=== PATIENT | female | born 1960 | race African-American/Black ===

== ENCOUNTER 2024-09-13 06:22 | Emergency (ER) | payer OTHER ==
[~2024-09-13] VITALS: Ht 170.2 cm; Wt 58.0 kg
--- NOTE | 2024-09-13 06:52 | ED.PDOC ---
History of Present Illness HPI Comments 64-year-old female with PMHx HTN brought in by EMS presents with a chief complaint of near-syncope, dizziness, and weakness x onset this morning. Patient reports that she got up to use the restroom and then got dizzy, almost like vertigo, and got really weak. Patient did not fall and had no head trauma. Miracle ent describes herself as feeling "really weak". EMS reports that patient was hypertensive upon arrival at 167/100. EKG shows NSR with a rate of 75. No other symptoms or modifying factors present at this time. Time Seen by MD: 06:45 Reviewed Notes: Medications, Allergies Allergies: Coded Allergies: NO KNOWN ALLERGIES (Unverified , 09/13/24) Information Source: Patient, Emergency Med Personnel Mode of Arrival: EMS Severity: Moderate Timing: Minutes Duration: Since onset Prehospital treatment: Accucheck (160) Past Medical History PAST MEDICAL HISTORY: HTN Surgical History: Denies all surgeries NNPS History: Denies all NNPS Hx Family History Family History: Reviewed,noncontributory to illness Social History Smoker: Non-Smoker Alcohol: Denies ETOH Use Drugs: Denies Drug Use Lives In: Home Constitutional: reports: weakness; denies: chills, diaphoresis, fatigue, fever, malaise, sweats, others EENTM: denies: blurred vision, double vision, ear bleeding, ear discharge, ear drainage, ear pain, ear ringing, eye pain, eye redness, hearing loss, mouth pain, mouth swelling, nasal discharge, nose bleeding, nose congestion, nose pain, photophobia, tearing, throat pain, throat swelling, voice changes, others Respiratory: denies: cough, hemoptysis, orthopnea, SOB at rest, shortness of b reath, SOB with excertion, stridor, wheezing, others Cardiovascular: denies: chest pain, dizzy spells, diaphoresis, Dyspnea on exertion, edema, irregular heart beat, left arm pain, lightheadedness, palpitations, PND, syncope, others Gastrointestinal: denies: abdomen distended, abdominal pain, blood streaked bowels, constipated, diarrhea, dysphagia, difficulty swallowing, hematemesis, melena, nausea, poor appetite, poor fluid intake, rectal bleeding, rectal pain, vomiting, others Genitourinary: denies: abnormal vagina bleeding, burning, dyspareunia, dysuria, flank pain, frequency, hematuria, incontinence, pain, , vagina discharge, urgency, others Neurological: reports: dizziness (NEAR-SYNCOPE); denies: fainting, headache, left sided numbness, left sided weakness, numbness, paresthesia, pre-existing deficit, right sided numbness, right sided weakness, seizure, speech problems, tingling, tremors, weakness, others Musculoskeletal: denies: back pain, gout, joint pain, joint swelling, muscle pain, muscle stiffness, neck pain, others Integumetry: denies: bruises, change in color, change in hair/nails, dryness, laceration, lesions, lumps, rash, wounds, others Allergic/Immunocompromised: denies: Difficulty Healing, Frequent Infections, Hives, Itching, others Hematologic/Lymphatic: denies: anemia, blood clots, easy bleeding, easy bruising, swollen glands, others Endocrine: denies: excessive hunger, excessive sweating, excessive thirst, excessive urination, flushing, intolerance to cold, intolerance to heat, unexplained weight gain, unexplained weight loss, others Psychiatric: denies: anxiety, bipolar disorder, depression, hopeless, panic disorder, schizophrenia, sleepless, suicidal, others All Other Systems: Reviewed and Negative Physical Exam General Appearance: No Apparent Distress, Normal HEENT: Normal ENT Inspection, Pharynx Normal, TMs Normal Neck: Full Range of Motion, Non-Tender, Normal, Normal Inspection Respiratory: Chest Non-Tender, Lungs Clear, No Accessory Muscle Use, No Respiratory Distress, Normal Breath Sounds Cardiovascular: No Edema, No JVD, No Murmur, No Gallop, Normal Peripheral Pulses, Regular Rate/Rhythm Breast Exam: Deferred Gastrointestinal: No Organomegaly, Non Tender, No Pulsatile Mass, Normal Bowel Sounds, Soft Genitalia: Deferred Pelvic: Deferred Rectal: Deferred Extremities: No calf tenderness, Normal capillary refill, Normal inspection, Normal range of motion, Non-tender, No pedal edema Musculoskeletal : Apperance: Normal Neurologic: Alert, 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 Was a procedure done?: No EKG EKG : Pulse Rate (adult): 75 [place]: Normal Cardiac Rhythm: NSR Block: None Hypertrophy: None ST: Normal Differential Dx Considerations may include: Hypertensive urgency, electrolyte abnormalities, CVA, posterior circulation stroke X-Ray, Labs, Meds, VS Vital Signs Date Time Temp Pulse Resp B/P (MAP) Pulse Ox O2 Delivery O2 Flow Rate FiO2 09/13/24 11:18 97.5 09/13/24 09:29 73 16 99 Room Air* 0 21 09/13/24 09:28 97.5 73 16 168/109 (128) 99 97.5 09/13/24 07:27 74 09/13/24 06:59 97.9 74 14 170/109 (129) 100 97.9 09/13/24 06:59 Room Air* 0 21 09/13/24 06:52 75 09/13/24 06:40 98.8 70 20 167/116 (133) 95 09/13/24 06:26 75 Lab Test 09/13/24 11:03 09/13/24 09:44 09/13/24 07:33 09/13/24 06:40 Range/Units Urine Color Pending Urine Clarity Pending Urine pH Pending Urine Specific [place] Pending Urine Protein Pending Urine Ketones Pending Urine Blood Pending Urine Nitrite Pending Urine Bilirubin Pending Urine Urobilinogen Pending Urine Leukocyte Esterase Pending Urine RBC Pending Urine WBC Pending Urine Squamous Epithelial Cells Pending Urine Bacteria Pending Urine Glucose Pending POC Glucose 141 H 70-106 mg/dl Troponin I High Sensitivity 5 5 5 </=34 ng/L White Blood Count 3.2 L 4.4-10.8 10^3/uL Red Blood Count 4.89 4.0-5.20 10^6/uL Hemoglobin 13.5 12.2-16.2 g/dL Hematocrit 42.1 36.0-46.0 % Mean Corpuscular Volume 86.1 80.0-100.0 fL Mean Corpuscular Hemoglobin 27.6 L 28.0-32.0 pg Mean Corpuscular Hemoglobin Concent 32.1 32.0-36.0 g/dL Red Cell Distribution Width 15.0 H 11.8-14.3 % Platelet Count 220 140-450 10^3/uL Mean Platelet Volume 9.8 6.9-10.8 fL Neutrophils (%) (Auto) 49.9 37.0-80.0 % Lymphocytes (%) (Auto) 38.2 10.0-50.0 % Monocytes (%) (Auto) 7.9 0.0-12.0 % Eosinophils (%) (Auto) 2.9 0.0-7.0 % Basophils (%) (Auto) 1.1 0.0-2.0 % Neutrophils # (Auto) 1.6 1.6-8.6 10 ^3/uL Lymphocytes # (Auto) 1.2 0.4-5.4 10 ^3/uL Monocytes # (Auto) 0.3 0-1.3 10 ^3/uL Eosinophils # (Auto) 0.1 0-0.8 10 ^3/uL Basophils # (Auto) 0 0-0.2 10 ^3/uL Nucleated Red Blood Cells 0.3 % Sodium Level 142 136-145 mmol/L Potassium Level 3.3 L 3.5-5.1 mmol/L Chloride Level 106 98-107 mmol/L Carbon Dioxide Level 25 20-31 mmol/L Anion Gap 11 5-15 Blood Urea Nitrogen 13 9-23 mg/dL Creatinine 1.06 H 0.550-1.02 mg/dL Glomerular Filtration Rate Calc 59 >90 mL/min BUN/Creatinine Ratio 12.3 10.0-20.0 Serum Glucose 160 H 74-106 mg/dL Calcium Level 10.2 8.7-10.4 mg/dL Current Medications Medications (Trade) Dose Ordered Sig/Christiano Route Start Time Stop Time Status Last Admin Acetaminophen (Tylenol Tablet) 650 mg ONCE ONCE PO 09/13/24 11:15 09/13/24 11:16 DC 09/13/24 11:18 Time of 1ST Reevaluation: 07:15 Reevaluation 1ST: Unchanged Patient Education/Counseling: Diagnosis, Treatment, Prognosis Family Education/Counseling: No Family Present Departure 1 Departure Time of Disposition: 11:21 (Patient presented with hypertension and symptoms concerning for hypertensive emergency. Patient is receiving iv blood pressure medications requiring intensive monitoring. Data: 1. I ordered and reviewed the result of at least 3 labs including a CBC, BMP, and Urinalysis. 2. I independently interpreted the following tests: CT Brain: Which appears benign. EKG which is Normal Sinus RhythmRisk:This patient has a high risk of morbidity due to further diagnostic testing or treatment and may suffer from an acute c ardiac disorder. Workup reveals hypertensive emergency and patient should be admitted for further workup. and possible expert consultation. ) Impression: Primary Impression: Gait instability Additional Impressions: Near syncope Hypertensive emergency Disposition: 02 SHORT TERM HOSPITAL Admit to: Med Surg Condition: Serious Critical Care Note Critical Care Time?: Yes Critical care comment: Hypertensive emergency Authorized and Performed by: Meenu Young MD Total critical care time: Approximately 36 minutes Due to a high probability of clinically significant, life threatening deterioration, the patient required my highest level of preparedness to intervene emergently and I personally spent this critical care time directly and personally managing the patient. This critical care time included obtaining a history; examining the patient; pulse oximetry; ordering and review of studies; arranging urgent treatment with development of a management plan; evaluation of patient's response to treatment; frequent reassessment; and, discussions with other providers. This critical care time was performed to assess and manage the high probability of imminent, life-threatening deterioration that could result in multi-organ failure. It was exclusive of separately billable procedures and treating other patients and teaching time. Please see my other sections and the rest of the note for further information on patient assessment and treatment. Stability Stability form required: Yes Initial call: 11:21 Stable for transfer: To designated facility Comments Emmanuel Authorization [id number] I personally scribed for MEENU YOUNG MD ([email or web address]) on 09/13/24 at 06:52. Electronically submitted by Noel Vargas ([email or web address]). MEENU YOUNG MD Sep 13, 2024 06:52
--- NOTE | 2024-09-13 06:59 | ECG ---
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
[2024-09-13 07:22] LABS: Chloride 106 mmol/L (98-107); Potassium 3.3 mmol/L (3.5-5.1); Sodium 142 mmol/L (136-145)
[2024-09-13 07:23] LABS: Anion Gap 11 (5-15); Calcium 10.2 mg/dL (8.7-10.4); Carbon Dioxide 25 mmol/L (20-31)
[2024-09-13 07:28] LABS: BUN/Creatinine Ratio 12.3 (10.0-20.0); Blood Urea Nitrogen 13 mg/dL (9-23); Glucose 160 mg/dL (74-106)
[2024-09-13 07:32] LABS: Basophils # (auto) 0 10 ^3/uL (0-0.2); Basophils % (auto) 1.1 % (0.0-2.0); Eosinophils # (auto) 0.1 10 ^3/uL (0-0.8); Eosinophils % (auto) 2.9 % (0.0-7.0); Hematocrit 42.1 % (36.0-46.0); Hemoglobin 13.5 g/dL (12.2-16.2); Lymphocytes # (auto) 1.2 10 ^3/uL (0.4-5.4); Lymphocytes % (auto) 38.2 % (10.0-50.0); Mean Corpuscular Hemoglobin 27.6 pg (28.0-32.0); Mean Corpuscular Hgb Conc. 32.1 g/dL (32.0-36.0); Mean Corpuscular Volume 86.1 fL (80.0-100.0); Monocytes # (auto) 0.3 10 ^3/uL (0-1.3); Monocytes % (auto) 7.9 % (0.0-12.0); Neutrophils # (auto) 1.6 10 ^3/uL (1.6-8.6); Neutrophils % (auto) 49.9 % (37.0-80.0); Nucleated Red Blood Cells % 0.3 %; Platelet Count (auto) 220 10^3/uL (140-450); Red Blood Cells 4.89 10^6/uL (4.0-5.20); White Blood Cell 3.2 10^3/uL (4.4-10.8)
[2024-09-13] MEDS: IOHEXOL 350 MG/ML 100ML IJ ONE (08:05)
--- NOTE | 2024-09-13 08:24 | DVH ---
CLINICAL INFORMATION: 64 years old, Female; near syncope. TECHNIQUE: Single AP portable chest radiograph was obtained. COMPARISON: None FINDINGS: Lungs: Hyperaeration of the lungs with flattening of the diaphragm suggesting emphysematous changes. No focal consolidation visualized. No pneumothorax or pleural effusion. Cardiac: Heart size is within normal limits. Pulmonary vasculature: Unremarkable. Mediastinum/suzette: Unremarkable. Bones: No acute osseous abnormality identified. Other: No other significant findings. IMPRESSION: 1. No evidence of acute disease in the chest. 2. Findings suggesting emphysematous changes in the appropriate clinical setting as described above.
[2024-09-13 09:29] VITALS: PULSE 73; RESP 16; O2SAT 99
--- NOTE | 2024-09-13 09:42 | DVH ---
EXAM: CT HEAD WITHOUT CONTRAST HISTORY: near syncope COMPARISON: None TECHNIQUE: Axial images of the head were obtained and reformatted in coronal and sagittal planes. All CT scans at this medical facility are performed using dose modulation techniques as appropriate t o a performed exam including the following: Automated exposure control was utilized; adjustment of th e MA and/or KV according to patient size; and use of iterative reconstruction technique. CT Dose: CTDI volume is 52.8 mGy. Dose-length product is 952.2 mGy*cm FINDINGS: There is no evidence of acute intracranial hemorrhage, mass, mass effect midline shift. There is no h ydrocephalus or extra-axial fluid collection. There are small hypodense foci in the bilateral caudate head region and in the right lentiform nucleus region which may represent chronic lacunar infarcts. The mcdowell-white matter differentiation is otherwise appropriate. The visualized paranasal sinuses and mastoid air cells are clear. The calvarium is intact. IMPRESSION: 1. No acute intracranial process. HS:Y
--- NOTE | 2024-09-13 09:58 | DVH ---
EXAM: CT ANGIO HEAD/NECK HISTORY: near syncope, with difficulty ambulating COMPARISON: CT brain without contrast performed earlier today TECHNIQUE: CTA imaging of the head was performed through the [place] following the uneventf ul administration of intravenous contrast. Sagittal and coronal reformatted images were obtained from the source data. 3D/MIP post-processing of the source data set was performed and reviewed by the rad iologist. Radiation Dose Information: CT Dose: CTDI volume is 34 mGy. Dose-length product is 1232 mGy*cm All CT scans at this medical facility are performed using dose modulation techniques as appropriate t o a performed exam including the following: Automated exposure control was utilized; adjustment of th e MA and/or KV according to patient size; and use of iterative reconstruction technique. FINDINGS: CTA Neck: Aortic Arch: Common origin of the right brachiocephalic and left common carotid arteries from the a [facility]. Right brachiocephalic artery: Unremarkable. Right carotid artery: Unremarkable. Right subclavian artery: Unremarkable. Right vertebral artery: Unremarkable. Left carotid artery: Unremarkable. Left subclavian artery: Unremarkable. Left vertebral artery: Unremarkable. OTHER: Reversal of normal lordosis multilevel degenerative disc disease of the cervical spine. Mild degenerative grade 1 anterolisthesis of C3 on C4 noted with associated posterior facet arthropathy. CTA Head: [place]: The arteries of [place] are patent, without evidence of aneurysm, stenosis or thrombosis. 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 The right is perfused thr ough the anterior communicating artery from the left [place]. Dural venous: Grossly unremarkable. Other: None. IMPRESSION: 1. No significant atherosclerotic disease. No large vessel occlusion or high-grade stenosis in the a rteries of the head and neck.
[2024-09-13 11:15] LABS: Urine Bacteria None Seen /hpf (None Seen)
[2024-09-13] MEDS: ACETAMINOPHEN 325 MG TAB PO ONE (11:18)
[2024-09-13 11:28] LABS: Urine Blood Negative /uL (Negative); Urine Clarity Turbid (Clear); Urine Color Colorless (Yellow); Urine Protein, UAD Negative (Negative); Urine Specific Gravity 1.029 (1.001-1.035); Urine Urobilinogen Normal (Negative); Urine WBC <1 /hpf (0 - 5)
[2024-09-13] MEDS: hydrALAZINE HCL 20 MG/ML VL IV ONE (11:41)
[2024-09-13 12:54] VITALS: BP 117/52; PULSE 91; RESP 12; TEMP 97.6; O2SAT 100
--- NOTE | 2024-09-13 14:41 | ECG ---
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
== END 2024-09-13 12:56 | disposition short-term general hospital (02) ==
LOC: EDBD 06:22 → ER 06:22
DX: R26.2 Difficulty in walking, not elsewhere classified (principal); R55 Syncope and collapse; I16.1 Hypertensive emergency
CPT/HCPCS: 36415; 70450; 70496; 71045; 80048; 81001; 82962; 84484; 85025; 93005; 96374; 99285; J0360; Q9967